=== PATIENT | female | born 1955 | race Caucasian/White ===

== ENCOUNTER → 2017-09-10 | Outpatient (CLI) | payer BC ==
--- NOTE | 2017-09-10 15:54 | XR ---
Limited cervical spine HISTORY: Neck pain Correlation to prior exam 09/19/2015 2 views of the cervical spine There is spondylosis especially at C6-7 with associated loss of disc height. Loss of normal cervical lordosis may be due to muscle spasm. Cervical vertebral bodies show preserved height, stable alignmen t. C7-T1 not included with certainty. IMPRESSION: Stable degenerative disc disease.
== END | disposition home or self-care (01) ==
LOC: RADXRYALE 15:05
PROVIDERS: ATTEND Internal Medicine
DX: M50.323 Other cervical disc degeneration at C6-C7 level (principal)
CPT/HCPCS: 72040

== ENCOUNTER → 2018-02-18 | Outpatient (CLI) | payer BC | END | disposition home or self-care (01) | LOC: LABWHC1 15:06 | PROVIDERS: ATTEND Otolaryngology | DX: J30.89 Other allergic rhinitis (principal) | CPT/HCPCS: 36415 ==

== ENCOUNTER → 2018-10-27 | Outpatient (CLI) | payer BC ==
--- NOTE | 2018-10-27 09:10 | CT ---
EXAMINATION TYPE: CT chest w con DATE OF EXAM: 10/27/2018 COMPARISON: NONE HISTORY: Cough for [address] DLP: 144.1 mGycm. Automated Exposure Control for Dose Reduction was Utilized. TECHNIQUE: CT scan of the thorax is performed following with IV Contrast, patient injected with 100 mL of Isovue 300. FINDINGS: LUNGS: Mild to moderate underlying emphysematous change is present most prominent in the upper lobes. There is some dependent atelectasis in the right lower lobe. No suspicious focal consolidation or gr oundglass opacity is seen. No concerning nodularity or masses identified. Tracheobronchial tree is pa tent. MEDIASTINUM: There are no greater than 1 cm hilar or mediastinal lymph nodes. No cardiomegaly or p ericardial effusion is seen. OTHER: A subcentimeter left hepatic lobe lesion axial image 52 is too small to further characterize b ut presumed benign. There is more concerning 1.9 x 1.8 cm slightly lobulated low dense lesion in the mid to distal body of the pancreas axial image 62 favoring cystic lesion also seen coronal image 36 m easuring 1.7 cm craniocaudal dimension. No pancreatic ductal dilatation is seen. IMPRESSION: No suspicious acute pulmonary process. Backwall mild to borderline moderate underlying em physematous change. Incidental 1.9 cm mid to distal pancreatic body cystic lesion. Advise MRI/MRCP fo llow-up to better evaluate and characterize. Advise pancreatic lab and clinical correlation.
== END | disposition home or self-care (01) ==
LOC: RADCTMAIN 06:51
PROVIDERS: ATTEND Internal Medicine
DX: J43.9 Emphysema, unspecified (principal); K86.2 Cyst of pancreas
CPT/HCPCS: 71260; Q9967

== ENCOUNTER 2018-11-04 12:13 | Day surgery (SDC) | payer BC ==
[2018-11-03 08:23] VITALS: BMI 24.0
[~2018-11-04 12:13] MED LIST: DEXAMETHASONE SOD PHOSPHATE 10 MG/ML 1 ML VIAL IV ONE; HYDROmorphone 0.5 MG/0.5 ML SYRINGE IVP PRN; LACTATED RINGERS 1,000 ML IV SCH; LIDOCAINE 1% 20 ML VIAL (10MG/ML) FOR IV START INTRADERMA PRN; Pre Op ABX Message 1 EACH MISC MISCELLANE ONE
[2018-11-04 12:36] VITALS: RESP 16; TEMP 98.4
[2018-11-04] MEDS ORDERED: ONDANSETRON 4 MG/2 ML VIAL IVP ONE (12:52)
[2018-11-04] MEDS ORDERED: SCOPOLAMINE 1.5MG/72HR PATCH TRANSDERM ONE (12:52)
[2018-11-04] MEDS ORDERED: MIDAZOLAM 2 MG/2 ML VIAL ONE (13:35)
[2018-11-04] MEDS ORDERED: BUPIVACAINE (PF) 0.25% 30 ML VIAL SQ ONE ×2 (13:50)
[2018-11-04 14:07] VITALS: BP 122/72
--- NOTE | 2018-11-04 14:19 | P.OP ---
Date of Procedure: 11/04/18 Preoperative Diagnosis: Scalp lesion Postoperative Diagnosis: Scalp lesion Procedure(s) Performed: Excision of scalp lesion Anesthesia: local Surgeon: Antonia Cordero Pathology: other (Scalp lesion) Condition: stable Disposition: same day Indications for Procedure: 63-year-old female presents for excision of scalp lesion that has grown in size on the right scalp. She was explained the risks, benefits and alternatives to the procedure. She did provide consent prior to attending the operating suite. Operative Findings: Scalp lesion, 1.5 x 1.0 x 0.5 cm Description of Procedure: The patient was brought into the operating suite and placed in left lateral decubitus position. She was prepped and draped in regular sterile fashion. She was provided a mild sedative and local anesthetic was administered. An elliptical incision was made around the scalp lesion. Dissection was then carried using the scalpel to completely excise the lesion. Hemostasis was maintained with electrocautery. The lesion measured 1.5 x 1.0 x 0.5 cm. The wound was then closed with 3-0 Prolene suture in interrupted fashion. The patient was awakened in the operating suite and taken to postanesthesia care unit in stable condition.
[2018-11-04 14:23] VITALS: PULSE 60
== END 2018-11-04 14:35 | disposition home or self-care (01) ==
LOC: OR 12:13
PROVIDERS: ATTEND Surgery
DX: L82.1 Other seborrheic keratosis (principal); Z88.5 Allergy status to narcotic agent; J44.9 Chronic obstructive pulmonary disease, unspecified; F17.210 Nicotine dependence, cigarettes, uncomplicated; Z79.899 Other long term (current) drug therapy
CPT/HCPCS: 88305; 11422; J2250; J1100; J2405

== ENCOUNTER → 2018-11-15 | Outpatient (CLI) | payer BC ==
--- NOTE | 2018-11-16 22:20 | MR ---
EXAMINATION TYPE: MR pancreas wo/w con DATE OF EXAM: 11/15/2018 COMPARISON: NONE HISTORY: 64-year-old female Pancreatic lesion Technique: Multiplanar, multisequence images of the abdomen were obtained before and after administra tion of 6.5 mL intravenous Gadavist gadolinium contrast. FINDINGS: Heart normal size without pericardial effusion. No pleural effusion. A few scattered benign cysts within the liver measuring up to 8 mm. No other focal liver lesion. No biliary ductal dilatation. Gallbladder, adrenal glands, kidneys, and spleen appear within normal limits. Within the junction of the pancreatic body and tail, there is a bilocular cystic lesion measuring 1.9 cm craniocaudal by 2.1 cm wide by 1.8 cm AP. Questionable communication with the main pancreatic darvin t, series 401 image 23. No additional pancreatic lesion is seen. No suspicious nodular or masslike enhancement. No abdominal ascites, lymphadenopathy, or gross bowel abnormality seen. IMPRESSION: Bilocular cystic lesion at the junction of the pancreatic body and tail measures up to 2.1 cm and may have communication with the main pancreatic duct. There is no suspicious nodular or masslike enhance ment. Some differential considerations include sequela of prior pancreatitis/pseudocyst and side bran ch IPMN. At this size, follow-up every 6 months for 2 years is recommended. If no growth after 2 year s, follow-up can switch to annual surveillance.
== END | disposition home or self-care (01) ==
LOC: RADMRIMAIN 12:59
PROVIDERS: ATTEND Internal Medicine
DX: K86.2 Cyst of pancreas (principal)
CPT/HCPCS: 74183; A9585

== ENCOUNTER → 2018-11-25 | Outpatient (CLI) | payer BC ==
--- NOTE | 2018-11-29 10:00 | MM ---
Reason for exam: screening (asymptomatic). Last mammogram was performed 4 years and 5 months ago. History: Patient is postmenopausal. Family history of breast cancer in maternal aunt and breast cancer in maternal cousin at age 54. Physical Findings: A clinical breast exam by your physician is recommended on an annual basis and results should be correlated with mammographic findings. MG Screening Mammo w CAD Bilateral CC and MLO view(s) were taken. Prior study comparison: July 03, 2014, bilateral MG screening mammo w CAD. The breast tissue is extremely dense which could obscure a lesion on mammography. There is a benign appearing stable left lateral asymmetry. Benign appearing calcifications in the left breast. No suspicious abnormality. No significant changes when compared with prior studies. ASSESSMENT: Benign, BI-RAD 2 RECOMMENDATION: Routine screening mammogram of both breasts in 1 year.
== END | disposition home or self-care (01) ==
LOC: RADMAMWWP 13:51
PROVIDERS: ATTEND Internal Medicine
DX: Z12.31 Encounter for screening mammogram for malignant neoplasm of breast (principal)
CPT/HCPCS: 77067

== ENCOUNTER → 2019-05-20 | Outpatient (CLI) | payer BC ==
--- NOTE | 2019-05-21 01:52 | MR ---
EXAMINATION TYPE: MR pancreas wo/w con DATE OF EXAM: 05/20/2019 COMPARISON: 11/15/2018 HISTORY: Lesion of pancreas CONTRAST: Standard multiplanar, multisequence MRI departmental protocol utilizing 7 mL intravenous Gadavist priscilla olinium contrast. Multiplanar multiecho imaging of the abdomen was performed without and with IV contrast. FINDINGS: The liver has normal size. There is evidence of a 1 cm cyst in the left lobe. The bile ducts are not dilated. Stomach is intact. Gallbladder is contracted. Spleen is intact. There are 2 cysts towards the tail of the pancreas that measure 8 mm and 21 mm. Margins are sharp and there is uniform water signal within the cyst. There is no evidence of a solid pancreatic mass. The pancreatic duct appears normal. The common bile duct appears normal. There is no evidence of pleural effusion. There is no adrenal mass. Kidneys have normal size and contour. There is no hydronephrosis. There is no evidence of retroperitoneal adenopathy. Contrast images show normal enhancement of the kidneys. Po rtal venous system appears normal. There is no pathologic enhancement. I see no bony destructive proc ess. IMPRESSION: 2 cysts in the tail of the pancreas stable compared to last exam and consistent with benign disease. No dilated ducts.
== END | disposition home or self-care (01) ==
LOC: RADMRIMAIN 14:26
PROVIDERS: ATTEND Internal Medicine
DX: K86.2 Cyst of pancreas (principal)
CPT/HCPCS: 74183; A9585

== ENCOUNTER → 2019-06-24 | Outpatient (CLI) | payer BC ==
--- NOTE | 2019-06-27 09:31 | MM ---
Reason for exam: clinical finding. Last mammogram was performed 7 months ago. History: Patient is postmenopausal. Family history of breast cancer in maternal aunt at age 50 and breast cancer in maternal cousin at age 40. Excisional biopsy of the right breast, 1972. Indicated problem(s): non-bloody discharge in the right breast. Physical Findings: Nurse did not find any significant physical abnormalities on exam. MG Diagnostic Mammo RT w CAD Spot compression CC, spot compression MLO, MLO, and CC view(s) were taken of the right breast. Prior study comparison: November 25, 2018, bilateral MG screening mammo w CAD. July 03, 2014, bilateral MG screening mammo w CAD. The breast tissue is heterogeneously dense. This may lower the sensitivity of mammography. There are similar appearing calcifications in the right breast. No suspicious abnormality. These results were verbally communicated with the patient and result sheet given to the patient on 06/24/19. ASSESSMENT: Incomplete: need additional imaging evaluation, BI-RAD 0 RECOMMENDATION: Ultrasound of the right breast. (retroareolar)
--- NOTE | 2019-06-27 09:32 | USB ---
Reason for exam: additional evaluation requested from abnormal screening. History: Patient is postmenopausal. Family history of breast cancer in maternal aunt at age 50 and breast cancer in maternal cousin at age 40. Excisional biopsy of the right breast, 1972. US Breast Limited RT Right limited breast ultrasound including focal area of concern, retroareolar and axilla demonstrates no cystic or solid lesion seen. These results were verbally communicated with the patient and result sheet given to the patient on 06/24/19. ASSESSMENT: Benign, BI-RAD 2 RECOMMENDATION: Return to routine screening mammogram schedule for both breasts. Manage patient on a clinical basis.
== END | disposition home or self-care (01) ==
LOC: RADMAMWWP 15:10
PROVIDERS: ATTEND Internal Medicine
DX: N64.52 Nipple discharge (principal); R92.8 Other abnormal and inconclusive findings on diagnostic imaging of breast
CPT/HCPCS: 77065

== ENCOUNTER → 2019-11-05 | Outpatient (CLI) | payer BC ==
--- NOTE | 2019-11-06 19:06 | MR ---
EXAMINATION TYPE: MR pancreas wo/w con DATE OF EXAM: 11/05/2019 COMPARISON: 05/20/2019, 11/15/2018 HISTORY: 64-year-old female F/U pancreatic lesion TECHNIQUE: Multiplanar, multisequence images of the abdomen were obtained before and after administra tion of 6.5 mL intravenous Gadavist gadolinium contrast. FINDINGS: Heart normal size without pericardial effusion. A few scattered benign cysts redemonstrated within the liver measuring up to 8 mm. Otherwise, no foca l liver lesion. No significant loss of signal on out of phase T1-weighted sequence to suggest fatty i nfiltration. No biliary ductal dilatation. Portal venous system is patent. Adrenal glands, gallbladder, kidneys, and spleen appear within normal limits. Bilocular cyst at the junction of the pancreatic body and tail is redemonstrated measuring 2.6 x 2.1 x 2.1 cm. On 05/20/2019, this measured 2.3 x 1.9 x 1.9 cm. On 11/15/2018, this measured 2.2 x 1.8 x 1.8 cm. No nodular or masslike enhancement. (Measured on coronal and axial T2 series) No additional pancreatic lesions are identified. No upper abdominal ascites, lymphadenopathy, gross bowel abnormality is seen. IMPRESSION: Bilocular cystic lesion at the junction of the pancreatic body and tail shows minimal growth from 10/19 currently measuring 2.6 x 2.1 x 2.1 cm (versus 2.2 x 1.8 x 1.8 cm, previously). Given the indo lent behavior, continued follow-up as described on the report of 11/15/2018 is recommended.
== END | disposition home or self-care (01) ==
LOC: RADMRIMAIN 09:50
PROVIDERS: ATTEND Internal Medicine
DX: K86.2 Cyst of pancreas (principal)
CPT/HCPCS: 74183; A9585

== ENCOUNTER → 2020-06-08 | Outpatient (CLI) | payer BC ==
--- NOTE | 2020-06-09 06:51 | XR ---
EXAMINATION TYPE: XR lumbosacral spine min 4V DATE OF EXAM: 06/08/2020 CLINICAL HISTORY: pain COMPARISON: NONE TECHNIQUE: Frontal, lateral, and oblique images of the lumbar spine are obtained. FINDINGS: There are 5 lumbar type vertebral bodies identified. The lumbar spine shows satisfactory alignment without evidence of acute fracture or dislocation. Vertebral body heights are within normal limits degenerative disc space narrowing and spondylosis. The overlying soft tissue appears unremark able. IMPRESSION: No acute fracture or dislocation is seen in the lumbar spine.ICD 10 NO FRACTURE, INITIAL EVALUATION
== END | disposition home or self-care (01) ==
LOC: RADXRYALE 15:44
PROVIDERS: ATTEND Internal Medicine
DX: M54.31 Sciatica, right side (principal)
CPT/HCPCS: 72110

== ENCOUNTER → 2020-11-02 | Outpatient (CLI) | payer BC | END | disposition home or self-care (01) | LOC: RADMRIMAIN 12:11 | PROVIDERS: ATTEND Internal Medicine | DX: Z53.9 Procedure and treatment not carried out, unspecified reason (principal) ==

== ENCOUNTER → 2020-11-26 | Outpatient (CLI) | payer BC ==
[2020-11-27 12:36] LABS: Cow's Milk IgE Class CLASS 3; Egg White IgE 2.38 kU/L (<0.10); Peanut IgE 0.19 kU/L (<0.10); Potato IgE <0.10 kU/L (<0.10); Potato IgE Class CLASS 0; Soybean IgE <0.10 kU/L (<0.10)
== END | disposition home or self-care (01) ==
LOC: LABWHC1 08:34
PROVIDERS: ATTEND Otolaryngology
DX: J30.89 Other allergic rhinitis (principal); L50.0 Allergic urticaria; B44.89 Other forms of aspergillosis
CPT/HCPCS: 36415; 86003

== ENCOUNTER → 2021-06-12 | Outpatient (CLI) | payer BC ==
[2021-06-12 23:05] LABS: Basophils # (A) 0.03 X 10*3/uL (0.00-0.10); Basophils % (A) 0.4 %; Eosinophils # (A) 0.15 X 10*3/uL (0.04-0.35); Eosinophils % (A) 2.1 %; HCT 38.3 % (37.2-46.3); HGB 12.6 g/dL (12.0-15.0); Immature Grans, Automated 0.1 %; Lymphocytes # (A) 2.38 X 10*3/uL (0.90-5.00); Lymphocytes % (A) 32.6 %; MCH 30.6 pg (27.0-32.0); MCHC 32.9 g/dL (32.0-37.0); Mean Platelet Volume 10.9 fL (9.5-12.2); Monocytes # (A) 0.63 X 10*3/uL (0.20-1.00); Monocytes % (A) 8.6 %; NRBC Per 100 WBC 0 /100 WBCS (0.0-0.0); Neutrophils # (A) 4.11 X 10*3/uL (1.80-7.70); Neutrophils % (A) 56.2 %; Platelet Count 363 X 10*3/uL (140-440); RBC 4.12 X 10*6/uL (4.10-5.20); RDW 12.5 % (11.5-14.5); WBC 7.31 X 10*3/uL (4.50-10.00)
[2021-06-13 00:34] LABS: C Reactive Protein, High Sens 2.33 mg/L (0.000-3.000); Complement C3 97.9 mg/dL (80.0-207.0)
[2021-06-13 09:47] LABS: Walnut IgE (Food) <0.10 kU/L
[2021-06-13 14:02] LABS: Beef IgE <0.10 kU/L (<0.10); Beef IgE Class CLASS 0; Lettuce IgE Class CLASS 0; Potato IgE <0.10 kU/L (<0.10); Potato IgE Class CLASS 0; Salmon IgE <0.10 kU/L (<0.10); Salmon IgE Class CLASS 0
[2021-06-13 14:03] LABS: Apple IgE Class CLASS 0; Oat IgE Class CLASS 0/1; Onion IgE <0.10 kU/L (<0.10); Onion IgE Class CLASS 0; Yeast Bakers/Brew IgE <0.10 kU/L (<0.10); Yeast Bakers/Brew IgE Class CLASS 0
[2021-06-13 14:04] LABS: Banana IgE Class CLASS 0/1; Celery IgE <0.10 kU/L (<0.10); Celery IgE Class CLASS 0; Chicken IgE Class CLASS 0; Gluten IgE Class CLASS 1; Latex IgE Class CLASS 0
[2021-06-13 14:05] LABS: Coffee IgE <0.10 kU/L (<0.10); Coffee IgE Class CLASS 0
[2021-06-14 20:27] LABS: C1 Esterase Inhibitor Fnc Assy 94 %; C1 Esterase Inhibitor, Protein 32 mg/dL (21-39)
== END | disposition home or self-care (01) ==
LOC: LABWHC1 14:19
PROVIDERS: ATTEND Otolaryngology
DX: L50.0 Allergic urticaria (principal)
CPT/HCPCS: 36415; 85025; 86003; 86038; 86141; 86160; 86161; 86332

== ENCOUNTER → 2021-07-17 | Outpatient (CLI) | payer BC ==
--- NOTE | 2021-07-17 12:58 | CT ---
EXAMINATION TYPE: CT neck chest w con DATE OF EXAM: 07/17/2021 12:26 PM COMPARISON: CT dated 10/27/2018 HISTORY: ADENOPATHY CT DLP: 488.2 mGycm Automated exposure control for dose reduction was used. CONTRAST: CT scan of the neck and chest is performed following with IV Contrast, patient injected with 100ML mL of Isovue 300. Axial images are obtained, coronal and sagittal reformatted images are reviewed. FINDINGS: NECK: Oval-shaped hyperdensity seen in the superficial portion of the right parotid gland measuring 6 x 9 m m, possibly representing a parotid lymph node. Otherwise symmetrical unremarkable parotid and submand ibular salivary glands. Unremarkable thyroid gland. Unremarkable nasopharynx, oropharynx, hypopharynx and larynx. Scattered subcentimeter bilateral cervi ventura lymph nodes, nonspecific. No suspicious or pathologically enlarged lymph nodes in the neck. Paten t major neck vessels. Degenerative changes at C6-7 level. CHEST: COPD changes with centrilobular emphysematous changes mainly involving the upper and midlung zones. P ulmonary nodules measuring up to 4 mm in the middle lobe and right lung base, and 5 mm in the left up per lobe medially, stable. Patent trachea and main bronchi. No pleural or pericardial effusion. No gr oss cardiomegaly. The ascending aorta measures 3.7 cm. The pulmonary trunk measures 2.7 cm. Scattered arterial atherosc lerotic calcifications. No pathologically enlarged lymph nodes in the chest. Scattered hepatic cysts. Larger pancreatic tail cyst measuring 2.7 cm compared to 1.9 cm previously. Recommend correlation wi MRI results. No aggressive bone lesion. IMPRESSION: No suspicious or pathologically enlarged lymph nodes in the neck or the chest. Suspected small right parotid gland lymph node however other parotid gland lesion cannot be excluded. Recommend further josue ctive ultrasound assessment. Apparently larger pancreatic tail cyst as described above, for correlation with MRI results. Other in cidental findings as described above.
== END | disposition home or self-care (01) ==
LOC: RADCTMAIN 11:29
PROVIDERS: ATTEND Internal Medicine Hematology & Oncology
DX: K86.2 Cyst of pancreas (principal)
CPT/HCPCS: 70491; 71260; Q9967

== ENCOUNTER → 2021-08-21 | Outpatient (CLI) | payer BC ==
--- NOTE | 2021-08-22 02:49 | MR ---
EXAMINATION TYPE: MR MRCP DATE OF EXAM: 08/21/2021 COMPARISON: 11/05/2019 HISTORY: Follow up for benign neoplasm of liver & pancreas. The planar multi echo imaging of the abdomen performed without contrast. There are MRCP images. Liver shows no focal defect. There is thin-walled 2.5 similar rounded fluid signal mass in the tail o f the pancreas. The pancreatic duct appears normal. The biliary tree is not dilated. The gallbladder is slightly contracted. No gallbladder wall thickening. Spleen is intact. The stomach is intact. There is no evidence of pleural effusion. Heart size is norm al. No pericardial effusion. Kidneys have normal size and contour. There is no hydronephrosis. There is 6 mm cyst in the posterior left lateral aspect of the pancreatic head. There is no ascites. No retroperitoneal adenopathy. The common bile duct shows normal size without evidence of filling defect. No evidence of a stricture . IMPRESSION: There is a stable benign-appearing cyst in the tail of the pancreas compared to old exam. There is tiny cyst in the pancreatic head of doubtful significance. No dilated ducts. No suspicious p ancreatic mass.
== END | disposition home or self-care (01) ==
LOC: RADMRIMAIN 17:21
PROVIDERS: ATTEND Internal Medicine Hematology & Oncology
DX: D13.4 Benign neoplasm of liver (principal); K86.2 Cyst of pancreas
CPT/HCPCS: 74181

== ENCOUNTER → 2022-05-07 | Outpatient (CLI) | payer MEDICARE, BC ==
--- NOTE | 2022-05-07 09:48 | BD ---
EXAMINATION TYPE: Axial Bone Density DATE OF EXAM: 05/07/2022 COMPARISON: NONE CLINICAL HISTORY: 66 years year old Female. ICD-10 CODE: N95.8 OTHER SPECIFIED MENOPAUSAL Height: 5 FT 3 IN Weight: 125 FRAX RISK QUESTIONS: Alcohol (3 or more units per day): NO Family History (Parent hip fracture): NO Glucocorticoids (More than 3mos): NO (Ex: prednisone, prednisolone, methylprednisolone, dexamethasone, and hydrocortisone). History of Fracture in Adulthood: YES Secondary Osteoporosis: 1. Type 1 Diabetes: NO 2. Hyperthyroidism: NO 3. Menopause before 45: YES 4. Malnutrition: NO 5. Chronic liver disease: NO Rheumatoid Arthritis: NO Current Tobacco Use: YES RISK FACTORS HISTORY OF: Surgery to Spine/Hip(right/left)/Wrist (right/left): NO Family History of Osteoporosis: NO Active: YES Diet low in dairy products/other sources of calcium: NO Postmenopausal woman: YES Take estrogen and/or progesterone medications: NO Lost more than 2 inches in height since high school: NO Frequent falls: NO Poor Health: GOOD Hyperparathyroidism: NO Adrenal Insufficiency: DRY KIDNEY MEDICATIONS: Additional Medications: XOLAR, Additional History: EXAM MEASUREMENTS: Bone mineral densitometry was performed using the [employer] System. Bone mineral density as measured about the Lumbar spine is: ----- L1-L4(G/cm2): 1.174 T Score Values are as follows: ----- L1: 0.0 ----- L2: 0.2 ----- L3: 0.3 ----- L4: -0.7 ----- L1-L4: -0.1 BASELINE Bone mineral density about the R hip (g/cm2): 0.795 Bone mineral density about the L hip (g/cm2): 0.752 T Score values are as follows: -----R Neck: -1.8 -----L Neck: -2.1 -----R Total: -0.7 -----L Total: -1.0 BASELINE FRAX%s: The graph provided illustrates a 17.0 % chance for a major osteoporotic fx and a 2.9 % chance for the hips probability for fx in 10 years time. IMPRESSION: Osteopenia (T Score between -2.5 and -1). There is slightly increased risk of fracture and the patient may be considered for treatment. Re-Screen 2-5 years. NOTE: T-SCORE=SD OF THE YOUNG ADULT MEAN.
--- NOTE | 2022-05-08 08:39 | MM ---
Reason for Exam: Screening (asymptomatic). Last mammogram was performed 3 year(s) and 5 month(s) ago. Patient History: Menarche at age 10. First Full-Term at age 19. Postmenopausal. 1973, Excisional Biopsy on the Right side. Maternal cousin had breast cancer, age 40. Maternal aunt had breast cancer, age 50. Risk Values: Jessica 5 year model risk: 1.6%. NCI Lifetime model risk: 5.9%. Prior Study Comparison: 07/03/2014 Bilateral Screening Mammogram, [facility]. 11/25/2018 Bilateral Screening Mammogram, [facility]. 06/24/2019 Right Diagnostic Mammogram, [facility]. Tissue Density: The breast tissue is heterogeneously dense. This may lower the sensitivity of mammography. Findings: Analyzed By CAD. There is no suspicious group of microcalcifications or new suspicious mass in either breast. Overall Assessment: Negative, BI-RAD 1 Management: Screening Mammogram of both breasts in 1 year. A clinical breast exam by your physician is recommended on an annual basis and results should be correlated with mammographic findings. [facility] will attempt to contact patient to return for supplemental views and ultrasound if indicated. Electronically signed and approved by: Dexter Magdaleno DO
== END | disposition home or self-care (01) ==
LOC: RADMAMWWP 08:15
PROVIDERS: ATTEND Internal Medicine
DX: Z12.31 Encounter for screening mammogram for malignant neoplasm of breast (principal); M85.89 Other specified disorders of bone density and structure, multiple sites; N95.8 Other specified menopausal and perimenopausal disorders; Z80.3 Family history of malignant neoplasm of breast
CPT/HCPCS: 77063; 77067; 77080

== ENCOUNTER → 2023-05-08 | Outpatient (CLI) | payer BC ==
--- NOTE | 2023-05-11 20:30 | MM ---
Reason for Exam: Screening (asymptomatic). Last screening mammogram was performed 12 month(s) ago. Patient History: Menarche at age 10. First Full-Term at age 19. Postmenopausal. 1973, Excisional Biopsy on the Right side. Maternal cousin had breast cancer, age 40. Maternal aunt had breast cancer, age 50. Risk Values: Jessica 5 year model risk: 1.6%. NCI Lifetime model risk: 5.7%. Prior Study Comparison: 11/25/2018 Bilateral Screening Mammogram, [facility]. 06/24/2019 Right Diagnostic Mammogram, [facility]. 05/07/2022 Bilateral MG 3D screening mammo w/cad, [facility]. Tissue Density: The breast tissue is heterogeneously dense. This may lower the sensitivity of mammography. Findings: Analyzed By CAD. Bilateral round calcifications are unchanged. There is no suspicious group of microcalcifications or new suspicious mass in either breast. Overall Assessment: Benign, BI-RAD 2 Management: Screening Mammogram of both breasts in 1 year. . Patient should continue monthly self-breast exams. A clinical breast exam by your physician is recommended on an annual basis. This exam should not preclude additional follow-up of suspicious palpable abnormalities. Note on Jessica scores and lifetime risk: 1. A Jessica score greater than 3% is considered moderate risk. If this is the case, consider specialist referral to assess eligibility for a risk reducing agent. 2. If overall lifetime risk for the development of breast cancer is 20% or higher, the patient may qualify for future screening with alternating mammogram and breast MRI. Electronically signed and approved by: Carter Eric M.D. Radiologist
== END | disposition home or self-care (01) ==
LOC: RADMAMWWP 08:48
PROVIDERS: ATTEND Internal Medicine
DX: Z12.31 Encounter for screening mammogram for malignant neoplasm of breast (principal); Z80.3 Family history of malignant neoplasm of breast; Z78.0 Asymptomatic menopausal state
CPT/HCPCS: 77067

== ENCOUNTER → 2024-04-18 | Outpatient (CLI) | payer BC ==
--- NOTE | 2024-04-18 12:07 | XR ---
EXAMINATION TYPE: XR chest 2V DATE OF EXAM: 04/18/2024 11:49 AM COMPARISON: None CLINICAL INDICATION: Female, 68 years old with history of [id number] CHEST, , TECHNIQUE: Frontal and lateral views FINDINGS: Heart normal size. Aorta and pulmonary vasculature within normal limits. Basilar densities have a str tigre appearance suggesting scarring or atelectasis. Mild hyperinflation and mild interstitial promine nce. Slight accentuated mid thoracic kyphosis. No consolidation or pleural effusion. IMPRESSION: Strandy bibasilar scarring or atelectasis. Possible underlying COPD. Clinically correlate. Otherwise, no definite acute process. [facility], , 04/18/2024 12:05 PM
== END | disposition home or self-care (01) ==
LOC: RADXRYALE 11:39
PROVIDERS: ATTEND Internal Medicine
DX: R06.02 Shortness of breath (principal)
CPT/HCPCS: 71046

== ENCOUNTER 2024-06-15 11:25 | Day surgery (SDC) | payer BC ==
[2024-06-15] MEDS: IV FLUID CONTINUATION 1,000 ML IV ONE (11:43)
[2024-06-15] MEDS: LACTATED RINGERS 1,000 ML IV SCH (12:02)
[2024-06-15 12:18] VITALS: TEMP 97.3
[2024-06-15] MEDS ORDERED: LIDOCAINE 1% INJ 10MG/ML (20 ML MDV) ONE (12:46)
[2024-06-15] MEDS ORDERED: PROPOFOL 10 MG/ML 20 ML VIAL IV ONE (12:46)
--- NOTE | 2024-06-15 13:00 | P.PCN ---
Date of Procedure: 06/15/24 Preoperative Diagnosis: GERD Postoperative Diagnosis: Hiatal hernia Gastritis Duodenitis Procedure(s) Performed: EGD with biopsy Anesthesia: TOBY Surgeon: Antonia Cordero Pathology: other (Biopsy of duodenum, antrum, GE junction) Condition: stable Disposition: same day Indications for Procedure: 68-year-old female with recent finding of increased GERD. She was started on PPI with some resolution of symptoms. Plan is for upper endoscopy for further evaluation. Risks, benefits and alternatives were provided to patient. All questions answered. Operative Findings: Mild hiatal hernia with gastritis and duodenitis Description of Procedure: The patient was brought into the endoscopy suite and placed in left lateral decubitus position. Adequate sedation was achieved using conscious sedation. A bite-block was placed and an endoscope was placed in the oropharynx and advanced under endoscopic visualization. The endoscope was advanced through the esophagus into the stomach, through the gastric antrum and in through the pylorus. The third portion of duodenum was visualized. The endoscope was then slowly withdrawn. The first portion of duodenum was noted to have mild inflammatory changes. Biopsies were taken. The antrum was noted to have mild inflammatory changes. Biopsies were taken. The gastric body distended normally and the gastric folds appeared normal and flattened with insufflation. A retroflexed view of the fundus and GE junction revealed a mild hiatal hernia. GE junction appeared normal with no ulceration and biopsies were taken. The esophagus appeared endoscopically normal. Excess air was removed and the scope was withdrawn and the procedure was completed. The patient was sent to PACU in stable condition.
[2024-06-15 13:20] VITALS: BP 131/61; PULSE 67; RESP 18
== END 2024-06-15 13:42 | disposition home or self-care (01) ==
LOC: ORWHC2ENDO 11:25
PROVIDERS: ATTEND Surgery
DX: K21.00 Gastro-esophageal reflux disease with esophagitis, without bleeding (principal); K44.9 Diaphragmatic hernia without obstruction or gangrene; K29.50 Unspecified chronic gastritis without bleeding; K29.80 Duodenitis without bleeding; J44.9 Chronic obstructive pulmonary disease, unspecified; M19.90 Unspecified osteoarthritis, unspecified site; G25.81 Restless legs syndrome; Z79.899 Other long term (current) drug therapy; Z88.5 Allergy status to narcotic agent
CPT/HCPCS: 43239; J2003; J2704; 88305

== ENCOUNTER → 2024-06-30 | Outpatient (CLI) | payer MEDICARE ==
--- NOTE | 2024-06-30 13:00 | CTL ---
EXAMINATION TYPE: CT Low Dose Lung DATE OF EXAM: 06/30/2024 12:15 PM COMPARISON: MRI 11/05/2019. CLINICAL INDICATION: Female, 68 years old with history of Z12.2 SCREENING LUNG CA Z87.891 FORMER SMOK ER; HISTORY OF SMOKER, history of tobacco use. TECHNIQUE: Multiple axial non-contrast scans were obtained from approximately the lung apices through the upper abdomen. Coronal and sagittal reformatted images were obtained. Low dose technique was uti lized. MIP were created on a separate workstation and submitted for review. CT DLP: 104.8 mGycm, Automated exposure control for dose reduction was used. CT Contrast: Contrast used: None Oral contrast used: None FINDINGS: Lack of intravenous contrast and low dose technique limits the evaluation of the vascular and soft ti ssue structures. LUNGS: No evidence of pulmonary fibrosis. No evidence of focal consolidation, pneumothorax or pleural effusion. Centrilobular emphysema changes. Nodules: RUL: Intrafissural lymph nodes measuring 3 mm series 3 image 85. RML: 3 mm series 5 image 40. RLL: None. ALISE: None. LLL: 2 mm series 5 image 36. Intrafissural lymph node series 5 image 28 AIRWAY: Patent and unremarkable. HEART: Size within normal limits. No significant coronary artery calcifications. MEDIASTINUM: No gross evidence of adenopathy. VASCULATURE: No aortic aneurysm. MUSCULOSKELETAL: No acute osseous abnormalities SOFT TISSUES/LYMPH NODES: Unremarkable. LOWER NECK: No significant findings. UPPER ABDOMEN: Splenic tail partially visualized lesion measuring 35 x 29 mm which is larger than kvng or MRI 11/05/2019r where it measured 27 mm.. IMPRESSION: 1. No clinically significant pulmonary nodules. 2. Mild emphysema. 3. Partially visualized lesion in the pancreatic tail measuring 36 x 20 mm which appears larger than prior on 11/05/2019 MRI. Repeat MRI pancreatic mass protocol with MRCP recommended. CT LUNG RAD AND CT CHEST RECOMMENDATION: Lung-Rad 2 Benign Appearance or Behavior: Continue annual sc reening with LDCT in 12 months. S Modifier (other clinically significant findings): None Recommend smoking cessation (if current smoker), or continuation of smoking cessation (if prior smoke r). Annual screening for lung cancer with low-dose computed tomography is recommended in adults ages 55 to 77 years who have a 30 pack-year smoking history and currently smoke or have quit within the pa st 15 years. Screening should be discontinued once a person has not smoked for 15 years or develops a health problem that substantially limits life expectancy or the ability or willingness to have curat aury lung surgery. Lung rads 2021 [email or web address] [email or web address], , 06/30/2024 12:58 PM
== END | disposition home or self-care (01) ==
LOC: RADCTMAIN 11:49
PROVIDERS: ATTEND Internal Medicine Critical Care Medicine
DX: Z12.2 Encounter for screening for malignant neoplasm of respiratory organs (principal); J43.2 Centrilobular emphysema; K86.9 Disease of pancreas, unspecified; Z87.891 Personal history of nicotine dependence
CPT/HCPCS: 71271